=== PATIENT | male | born 1970 | race Caucasian/White ===

== ENCOUNTER 2018-01-11 18:48 | Emergency (ER) | payer OTHER ==
[2018-01-11] MEDS ORDERED: KETOROLAC 60 MG/2 ML VIAL IM STA (19:54)
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
[2018-01-11 20:15] VITALS: BP 126/74
== END 2018-01-11 20:14 | disposition home or self-care (01) ==
LOC: ED 18:48
DX: S16.1XXA Strain of muscle, fascia and tendon at neck level, initial encounter (principal); V43.62XA Car passenger injured in collision with other type car in traffic accident, initial encounter; Y92.488 Other paved roadways as the place of occurrence of the external cause
CPT/HCPCS: 96372; 99283